=== PATIENT | male | born 1980 | race Caucasian/White ===

== ENCOUNTER 2020-03-27 14:06 | Day surgery (SDC) | payer BC ==
[2020-03-19 15:08] LABS: BASOPHILS % (AUTO) 0.4 % (0-1); EOSINOPHILS % (AUTO) 0.9 % (0-6); LYMPHOCYTES # (AUTO) 1.2 X10'3 (1.1-4.8); LYMPHOCYTES % (AUTO) 28.1 % (21-51); MEAN CORPUSCULAR HEMOGLOBIN 30.7 PG (27.0-31.0); MEAN CORPUSCULAR HGB CONC 34.1 g/dL (33.0-36.5); MEAN CORPUSCULAR VOLUME 89.9 FL (78-98); MONOCYTES # (AUTO) 0.3 X10'3 (0-0.9); MONOCYTES % (AUTO) 7.6 % (2-12); NEUTROPHILS # (AUTO) 2.8 X10'3 (1.8-7.7); PRE OP HEMATOCRIT 41.6 % (42.0-52.0); PRE OP HEMOGLOBIN 14.2 g/dL (14.0-17.9); PRE OP PLATELET COUNT 216 X10'3 (140-440); RED BLOOD COUNT 4.62 X10'6 (4.70-6.10); RED CELL DISTRIBUTION WIDTH 12.6 % (11.5-14.5)
[2020-03-19 15:14] LABS: ALBUMIN 4.1 G/DL (3.4-5.0); ALBUMIN/GLOBULIN RATIO 1.3 (1.1-1.5); ALKALINE PHOSPHATASE 81 IU/L (46-116); BLOOD UREA NITROGEN 15 MG/DL (7-18); BUN/CREATININE RATIO 15.2 (5.4-32.0); CALCIUM 9.6 MG/DL (8.5-10.1); CHLORIDE 106 MMOL/L (99-107); CREATININE 0.99 MG/DL (0.60-1.10); PRE OP ALT 35 U/L (30-65); PRE OP ANION GAP 4 (8-16); PRE OP AST 14 U/L (10-37); PRE OP BILIRUB, TOTAL 0.5 MG/DL (0.0-1.0); PRE OP GLUCOSE 93 MG/DL (70-104); PRE OP POTASSIUM 4.2 MMOL/L (3.4-5.1); PRE OP SODIUM 141 MMOL/L (135-145); TOTAL CARBON DIOXIDE 31.1 MMOL/L (24-32); TOTAL PROTEIN 7.2 G/DL (6.4-8.2); eGFR 85 ML/MIN
[2020-03-27] VITALS (21 sets, daily range): BP systolic 116–127; BP diastolic 67–82
[~2020-03-27] VITALS: Ht 180.3 cm; Wt 75.2 kg
[2020-03-27] MEDS: ceFAZolin 2gm in dextrose, iso 50 ML IV ONE (05:30)
[~2020-03-27 14:06] MED LIST: NO HOME MEDS
[2020-03-27] MEDS: famotidine 20mg tablet PO ONE (15:00)
[2020-03-27] MEDS: ringers solution, lacted 1,000 ML IV SCH (15:01)
[2020-03-27] MEDS ORDERED: ondansetron/PF 4mg/2ml inj IV PRN ×2 (16:20→17:00)
[2020-03-27] MEDS ORDERED: ringers solution, lacted 1,000 ML IV SCH ×2 (16:20→17:00)
[2020-03-27] MEDS ORDERED: meperidine/PF 25mg/ml syringe IV PRN ×6 (16:20→17:00)
[2020-03-27] MEDS ORDERED: morphine 2 MG/ML inj. syringe IV PRN ×2 (16:20→17:00)
[2020-03-27] MEDS ORDERED: proCHLORperazine 10 MG/2 ml inj IV PRN ×2 (16:20→17:00)
[2020-03-27] MEDS ORDERED: morphine 4 MG/ML inj SYRINge IV PRN ×2 (16:20→17:00)
[2020-03-27] MEDS ORDERED: midazolam 2 mg/2 ml injection ONE (17:02)
[2020-03-27] MEDS ORDERED: fentaNYL/PF 50MCG/1 ML 2ML syringe ONE ×2 (17:02→17:35)
[2020-03-27] MEDS ORDERED: rocuronium 10mg/ml inj IV ONE (17:02)
[2020-03-27] MEDS ORDERED: propofol inj 20 ML IV ONE (17:03)
[2020-03-27] MEDS ORDERED: sevoflurane 250ml liquid IH ONE (17:09)
[2020-03-27] MEDS ORDERED: glycopyrrolate 0.2mg/ml inj ONE ×2 (17:09→18:57)
[2020-03-27] MEDS: BUPIVAcaine/PF 2.5 mg/ml (0.25%) 30ml vial ONE (18:08)
[2020-03-27] MEDS ORDERED: ondansetron/PF 4mg/2ml inj ONE (18:52)
[2020-03-27] MEDS ORDERED: dexamethasone sod phosphate 4mg/ml inj. ONE (18:52)
[2020-03-27 18:56] LABS: ALBUMIN,BODY FLUID 2.3 G/DL; AMYLASE,BODY FLUID 32 U/L; GLUCOSE,BODY FLUID 93 MG/DL; LDH,BODY FLUID 71 U/L; TOTAL PROTEIN,BODY FLUID 3.5 G/DL
[2020-03-27] MEDS ORDERED: neostigmine methylsulfate 1 MG/ML 10ml vial ONE (18:57)
[2020-03-27 19:04] LABS: BFAPPEAR HAZY; BFCOLOR YELLOW; BFVOLUME 10 ML
[2020-03-27 19:05] LABS: BF RBC COUNT 2300 /CU MM; BF WBC COUNT 176 /CU MM (0-1000)
--- NOTE | 2020-03-27 19:16 | NUR ---
Received from OR via [facility] , accompanied by Anesthesiologist CHAUNCEY and report given by Anesthesiolgist. PATIENT WITH 3 ABDOMINAL BANDAIDS PRESENT AND DENIES PAIN. NO DRAINAGE. VSS Addendum: 03/27/20 at 1932 by Myke Ramirez RN, RN Amended: Links added.
[2020-03-27 20:23] LABS: BF MESOTHELIAL CELLS FEW; LYMPHOCYTES,BODY FLUID 48 %; MONOCYTES,BODY FLUID 24 %; NEUTROPHILS,BODY FLUID 28 %
--- NOTE | 2020-03-27 22:36 | NUR ---
I HAVE REVIEWED D/C INSTRUCTIONS WITH PATIENT AND FAMILY AND THEY HAVE VERBALIZED UNDERSTANDING. PATIENT D/C HOME WITH ALL BELONGINGS AND FAMILY GAVE TRANSPORT HOME. PATIENT AMBULATION, VOIDED A STREAM OF URINE. POST VOID RESIDUAL WAS 76CC. DENIES PAIN REQUIRING PAIN MEDS. OUT VIA WHEELCHAIR WHERE FAMILY DROVE PATIENT HOME. Addendum: 03/27/20 at 2350 by Myke Ramirez RN, RN Amended: Links added.
== END 2020-03-27 22:36 | disposition home or self-care (01) ==
LOC: PAS 14:06
PROVIDERS: ATTEND Surgery
DX: K40.90 Unilateral inguinal hernia, without obstruction or gangrene, not specified as recurrent (principal); Z98.890 Other specified postprocedural states; Z20.822 Contact with and (suspected) exposure to COVID-19
CPT/HCPCS: 36415; 49650; 80053; 82042; 82150; 82945; 82948; 83615; 84157; 85025; 87070; 87075; 87635; 89051; C1713; C1758; C1781; J1100; J2250; J2405; J2704; J2710; J3010; J3490; J7120; S2900; A4215; A4618